=== PATIENT | female | born 1980 | race Caucasian/White ===

== ENCOUNTER 2016-05-02 02:43 | Inpatient (IN) | payer OTHER ==
[~2016-05-02] VITALS: Ht 165.1 cm; Wt 80.0 kg
[2016-05-02] VITALS (29 sets, daily range): BP systolic 88–126; BP diastolic 50–78
[2016-05-02] MEDS ORDERED: TUMS500C PO (03:32)
[2016-05-02] MEDS ORDERED: PRENTAB9 PO (03:32)
[2016-05-02] MEDS ORDERED: PEPC1TAB2 PO (03:32)
[2016-05-02] MEDS ORDERED: LR 1,000 ML IV SCH ×2 (04:29)
[2016-05-02] MEDS ORDERED: OXYTOCIN DRIP 30 UNITS in APPROPRIATE DILUENT 1 EA IV SCH ×2 (04:30→10:07)
[2016-05-02 05:02] LABS: MEAN CORPUSCULAR HEMOGLOBIN 30.1 pg (27.0-33.0); MEAN CORPUSCULAR HGB CONC 33.3 g/dl (32.0-36.5); MEAN CORPUSCULAR VOLUME 90.5 fl (80.0-96.0); RED CELL DISTRIBUTION WIDTH 13.9 % (11.5-14.5); WHITE BLOOD COUNT 11.2 K/mm3 (4.0-10.0)
[2016-05-02] MEDS ORDERED: diphenhydrAMINE INJ 50MG/ML VIAL (J1200) IV PRN (07:30)
[2016-05-02] MEDS ORDERED: LACTATED RINGER'S 1000 ML IV PRN (07:30)
[2016-05-02] MEDS ORDERED: EPIDURAL COMMENT XX SCH (07:30)
[2016-05-02] MEDS ORDERED: FENTANYL/ROPIVACAINE/NACL CADD 250 ML EPIDURAL SCH (07:30)
[2016-05-02] MEDS ORDERED: REFRIGERATOR IV KEYS XX PRN (07:30)
[2016-05-02] MEDS ORDERED: ONDANSETRON 4MG/2ML VIAL (J2405) IV PRN (07:30)
[2016-05-02] MEDS ORDERED: NALOXONE INJ 0.4 MG/1 ML VIAL (J2310) IV PRN (07:30)
[2016-05-02] MEDS ORDERED: EPIDURAL/PCA KEYS XX PRN (07:30)
[2016-05-02] MEDS: ePHEDrine SULFATE 25 MG/5 ML(5MG/ML) SYRINGE IV PRN ×3 (07:36→07:49)
[2016-05-02] MEDS ORDERED: DIBUCAINE 1% OINTMENT 30GM TOP PRN (10:15)
[2016-05-02] MEDS ORDERED: METHYLERGONOVINE MALEATE 0.2 MG TAB PO PRN (10:15)
[2016-05-02] MEDS ORDERED: ACETAMINOPHEN 500 MG TAB PO PRN (10:15)
[2016-05-02] MEDS ORDERED: IBUPROFEN 800 MG TAB PO PRN (10:15)
[2016-05-02] MEDS ORDERED: RHOGAM 300 MCG (1500 IU) INJ (J2790) IM SCH (10:15)
[2016-05-02] MEDS ORDERED: DOCUSATE SODIUM 100 MG CAP PO PRN (10:15)
[2016-05-02] MEDS ORDERED: MEASLES,MUMPS,RUBELLA VACCINE INJ (MMR-II) (90707) SC SCH (10:15)
[2016-05-03 06:10] VITALS: BP 122/74
[2016-05-03] MEDS ORDERED: IBUP-1114 PO (08:55)
[2016-05-03] MEDS ORDERED: COLA100C PO (08:55)
[2016-05-03] MEDS ORDERED: ACET50TA PO (08:55)
[2016-05-03] MEDS ORDERED: PRENATAL VITAMIN TAB PO SCH (09:00)
== END 2016-05-03 12:15 | disposition home or self-care (01) | DRG 775 ==
LOC: M LDO 02:43 → M LDI 04:50 → M OBS 11:45
PROVIDERS: ADMIT Student in an Organized Health Care Education/Training Program; ATTEND Student in an Organized Health Care Education/Training Program
PROC: 10E0XZZ Delivery of Products of Conception, External Approach (ICD-10-PCS; principal; 2016-05-02)
PROC: 10907ZC Drainage of Amniotic Fluid, Therapeutic from Products of Conception, Via Natural or Artificial Opening (ICD-10-PCS; 2016-05-02)
DX: O48.0 Post-term pregnancy (principal); Z37.0 Single live birth; Z3A.40 40 weeks gestation of pregnancy; O09.523 Supervision of elderly multigravida, third trimester

== ENCOUNTER 2016-05-13 16:55 | Day surgery (SDC) | payer OTHER ==
[~2016-05-13] VITALS: Ht 165.1 cm; Wt 72.7 kg
[~2016-05-13 16:55] MED LIST: ACET50TA PO; COLA100C PO; IBUP-1114 PO; PEPC1TAB2 PO; PRENTAB9 PO; TUMS500C PO
[2016-05-13] MEDS ORDERED: ACETAMINOPHEN 650 MG SUPP PR ONE (17:15)
[2016-05-13] MEDS ORDERED: NS 500 ML IV ONE (17:15)
[2016-05-13] MEDS ORDERED: AMPICILLIN SOD/SULBACTAM SOD 3 GM in D5W MINI-BAG PLUS 100 ML IV ONE (17:15)
[2016-05-13] MEDS ORDERED: MIDAZOLAM INJ 2 MG/2 ML VIAL (J2250) As Ordered ONE (17:47)
[2016-05-13] MEDS ORDERED: fentaNYL 100 MCG/2 ML INJECTION (J3010) As Ordered ONE (17:47)
[2016-05-13] MEDS ORDERED: dexameTHASONE 4 MG/ML 1ML VIAL (J1100) As Ordered ONE (17:49)
[2016-05-13] MEDS ORDERED: ONDANSETRON 4MG/2ML VIAL (J2405) As Ordered ONE (17:49)
[2016-05-13 18:03] LABS: MEAN CORPUSCULAR HEMOGLOBIN 29.8 pg (27.0-33.0); MEAN CORPUSCULAR HGB CONC 32.2 g/dl (32.0-36.5); MEAN CORPUSCULAR VOLUME 92.5 fl (80.0-96.0); RED CELL DISTRIBUTION WIDTH 14.4 % (11.5-14.5); WHITE BLOOD COUNT 13.4 K/mm3 (4.0-10.0)
[2016-05-13 18:33] LABS: ANION GAP 8 MEQ/L (8-16); BLOOD UREA NITROGEN 11 MG/DL (7-18); CARBON DIOXIDE LEVEL 22 MEQ/L (21-32); CHLORIDE LEVEL 114 MEQ/L (98-107); CREATININE FOR GFR 0.74 MG/DL (0.55-1.02); GLOMERULAR FILTRATION RATE > 60.0 (>60); GLUCOSE, FASTING 86 MG/DL (70-105); POTASSIUM SERUM 3.7 MEQ/L (3.5-5.1); SODIUM LEVEL 144 MEQ/L (136-145)
[2016-05-13] MEDS ORDERED: OXYTOCIN INJ 10 UNITS/ML VIAL (J2590) As Ordered ONE (18:36)
[2016-05-13] MEDS ORDERED: miSOPROStol 200 MCG TAB (S0191) As Ordered ONE (18:41)
[2016-05-13] MEDS ORDERED: PERCOCET 5MG/325MG TAB As Ordered ONE (19:18)
[2016-05-13] MEDS ORDERED: PERCOCET 5MG/325MG TAB PO PRN (19:30)
[2016-05-13] MEDS ORDERED: LR 1,000 ML IV SCH (19:30)
[2016-05-13] MEDS ORDERED: IBUPROFEN 800 MG TAB PO PRN (19:30)
[2016-05-13] MEDS ORDERED: ONDANSETRON 4MG/2ML VIAL (J2405) IV PRN (19:30)
[2016-05-13] MEDS ORDERED: fentaNYL 100 MCG/2 ML INJECTION (J3010) IV PRN (19:30)
[2016-05-13 19:45] VITALS: BP 131/85
[2016-05-13 20:15] VITALS: BP 132/83
[2016-05-13 21:15] VITALS: BP 155/94
[2016-05-13 22:15] VITALS: BP 119/70
[2016-05-13 23:15] VITALS: BP 135/70
[2016-05-14 00:15] VITALS: BP 133/91
[2016-05-14] MEDS: AMPICILLIN SOD/SULBACTAM SOD 3 GM in D5W MINI-BAG PLUS 100 ML IV SCH ×2 (00:56→05:18)
[2016-05-14 04:00] VITALS: BP 120/69
[2016-05-14 06:20] VITALS: BP 126/84
--- NOTE | 2016-05-14 11:49 | RO ---
DATE OF PROCEDURE: 05/13/2016 PREPROCEDURE DIAGNOSIS: Pyometritis, possible endometritis. POSTPROCEDURE DIAGNOSES: Pyometritis, endometritis, and uterine atony. OPERATION PROPOSED: Suction curettage, possible hysteroscopy. OPERATION PERFORMED: Suction curettage. ANESTHESIA: Conscious sedation with laryngeal mask SURGEON: Jasson Weiss MD KETTLE GIRL: ANESTHESIA: DESCRIPTION OF PROCEDURE: Under adequate anesthesia, prepped and draped in the lithotomy position, the patient had antibiotics on board preop because of the risk of endometritis, acetaminophen suppository 1300 mg per rectum. Time-out was performed. Weighted speculum in the vagina. Single-tooth tenaculum on the anterior lip of the cervix. Bladder was drained for 25-50 mL of clear urine. Upon placing the sound in the uterus, profuse amount of pus came out of the uterus. It was very foul-smelling discharge, pungent in odor and as we dilated up to a #12 Katharine, more pus was retrieved out of the uterus, approximately 150 mL. We did an aerobic and anaerobic culture from the intrauterine area. After that was done, we then suction curettage with the curved curette #12. We curettaged the cavity til smooth. Even with the suctioning, there was more pus that came out of the uterus. We then had the anesthesiologist give 5 units IV push Pitocin running a full bag with 20 units in tandem. The uterus failed to contract down well secondary to the inflammatory process that was going on in the uterus and 1000 mg of Cytotec was given to the patient per rectum in order to contract down the uterus. We waited approximately 15 minutes to see if the uterus would contract down or would she require a balloon or some other intervention. Fortunately, the uterus contracted well down under the Cytotec and the Pitocin in a combination. The uterus was placed in anatomical position and the instrument and pad count was correct. The patient was sent to recovery in good condition.
== END 2016-05-14 06:25 | disposition home or self-care (01) ==
LOC: M SDC 16:55 → M PED 20:00 → M SDC 05-14 06:25
PROVIDERS: ATTEND Obstetrics & Gynecology
DX: N71.9 Inflammatory disease of uterus, unspecified (principal); O62.2 Other uterine inertia; Z87.891 Personal history of nicotine dependence
CPT/HCPCS: 59812; 80048; 85027; 87070; 87075; 87076; 87077; 87186; 88305; 96376; J1100; J2250; J2405; J2590; J3010